=== PATIENT | male | born 2000 | race Caucasian/White ===

== ENCOUNTER 2025-02-06 17:10 | Outpatient (CLI) | payer OTHER, SELFPAY ==
--- NOTE | 2025-02-06 17:30 | CRLHL7_ITS ---
For Patients: As a result of the Century Cures Act, medical imaging exams and procedure reports are released immediately into your electronic medical record. You may view this report before your referring provider. If you have questions, please contact your health care provider. Indication: LOW BACK PAIN. Technique: Noncontrast sagittal and axial T1, T2, and sagittal STIR sequences are provided. Comparison: Lumbar radiographs 01/26/2025 Findings: There are 5 lumbar-type vertebral bodies. Normal alignment. No fracture. No prevertebral or paraspinal edema. No aggressive osseous lesions. Disc desiccation and mild disc space narrowing at L5-S1. The conus medullaris is normal in signal and location. T12-L1: No spinal canal stenosis or neural foramen narrowing. L1-2: No spinal canal stenosis or neural foramen narrowing. L2-3: No spinal canal stenosis or neural foraminal narrowing. L3-4: No spinal canal stenosis or neural foraminal narrowing. L4-5: Mild disc bulge. Mild right neural foraminal narrowing. No left neural foraminal narrowing. No spinal canal stenosis. L5-S1: Disc desiccation and mild interspace narrowing. Mild disc bulge. Left central annular fissure. No significant spinal canal stenosis or neural foramen narrowing. Impression: 1. No acute osseous or ligamentous abnormality. Normal alignment. 2. At L5-S1 there is disc desiccation and mild disc space narrowing with small left central annular fissure. No spinal canal stenosis. Mild left neural foraminal narrowing. 3. At L4-5, mild disc bulge results in mild right neural foraminal narrowing. Dictated by Erik Ponce MD @ 02/07/2025 10:19:51 AM (Electronically Signed)
== END 2025-02-06 17:11 | disposition home or self-care (01) ==
LOC: MRI 17:11
PROVIDERS: Visit Provider Family Medicine
DX: M54.50 Low back pain, unspecified (principal); M51.A3 Intervertebral annulus fibrosus defect, lumbosacral region, unspecified size; M99.72 Connective tissue and disc stenosis of intervertebral foramina of thoracic region; M99.71 Connective tissue and disc stenosis of intervertebral foramina of cervical region
CPT/HCPCS: 72148